=== PATIENT | female | born 1955 | race Caucasian/White ===

== ENCOUNTER → 2023-10-12 | Outpatient (CLI) | payer MEDICARE ==
--- NOTE | 2023-10-12 12:19 | CA ---
Lexiscan Nuclear Stress Test Report Name: Elaine Adorno Exam Date: 10/12/2023 10:30 Exam Location: [place] [facility] Ht (in): 66 Wt (lb): 238 BSA: 2.15 Ordering Phys: Carolyn Conway DO Referring Phys: Alyson Byrd [facility] Technologist: Trent Joe Age: 68 Gender: F : 1955 Procedure CPT: Indications: R06.02 SOB ICD-10 Codes: Patient History: DIFFICULTY IN BREATHING, PALPITATIONS, HTN, HYPERCHOLESTEROLEMIA, PRIOR SMOKER Medications: Meds past 24 hrs: Pretest Chest Pain: STRESS TEST Lexiscan Protocol Exercise Duration (min:sec): 01:[address] Depressions (mm): Angina Score: Crowe Score: Resting HR (bpm): 88 Peak HR (bpm): 101 Resting BP (mmHg): 128 / 69 Peak BP (mmHg): 140 / 64 MPHR: 154 Target HR: 131 % MPHR: 66 METS: 1.0 Total Dose: Peak Dose: Atropine: Double Product: 67648 BP Response: Stress Termination: INFUSION COMPLETE Stress Symptoms: NO SYMPTOMS Stress Summary: ECG ANALYSIS Resting ECG: Stress ECG: CONCLUSIONS At baseline EKG showed normal sinus rhythm, left axis deviation, poor R-wave progression, Q-wave in lead 3 and aVF, no significant ST or T wave abnormalities. Patient recieved IV infusion of Lexiscan 0.4mg and at peak infusion EKG showed no significant change from baseline. Conclusions: 1. Normal EKG response to Lexiscan infusion 2. Nuclear imaging to be reported separately. Dr. Tony Villarreal DO (Electronically Signed) Final Date: 12 October 2023 12:18
--- NOTE | 2023-10-12 12:22 | NM ---
EXAMINATION TYPE: NM stress lexiscan cardiolite DATE OF EXAM: 10/12/2023 COMPARISON: NONE CLINICAL INDICATION: Female, 68 years old with history of R06.02 SOB; TECHNIQUE: After the intravenous administration of 10.6 mCi Tc 99m Sestamibi - Cardiolite resting SP ECT images acquired 45 minutes post injection. The patient received 0.4mg Lexiscan, 25.0 mCi Tc 99m Sestamibi - Stress images obtained [address] injection FINDINGS: Review of stress and rest SPECT images demonstrates no distinct perfusion abnormality. However, polar map suggests some reversibility along the lateral basal wall. Gated analysis shows normal wall motio n with an estimated left ventricular ejection fraction of 68 %. TID is calculated at 1.07, upper castor its of normal. IMPRESSION: 1. Polar map suggests some reversibility along the lateral basal wall. This is favored to represent a ttenuation artifact. Not clearly appreciated on SPECT images. Further clinical correlation recommende d. 2. Estimated LVEF of 68%.
== END | disposition home or self-care (01) ==
LOC: RADNMMAIN 07:56
PROVIDERS: ATTEND Family Medicine
DX: R06.02 Shortness of breath (principal); I10 Essential (primary) hypertension; E78.00 Pure hypercholesterolemia, unspecified; Z87.891 Personal history of nicotine dependence
CPT/HCPCS: 93017; 78452; A9500

== ENCOUNTER → 2023-10-30 | Day surgery (SDC) | payer MEDICARE ==
[2023-10-28 16:19] VITALS: BMI 38.4
[~2023-10-30] MED LIST: ALPRAZolam 0.25 MG TAB PO PRN; HEPARIN SODIUM 1,000 UN/ML (10ML VL) ONE; LIDOCAINE 1% INJ 10MG/ML (20 ML MDV) ONE; NITROGLYCERIN SL TABS 0.4 MG TAB SUBLINGUAL PRN; RX INFO: IV CONTRAST WAS GIVEN 1 EACH MISC MISCELLANE PRN; VERAPAMIL 2.5 MG/ML 2 ML AMP ONE; fentaNYL (PF) 50 MCG/ML 2 ML AMP ONE
[2023-10-30] MEDS: SODIUM CHLORIDE 0.9% 1,000 ML in EMPTY BAG 1 BAG IV SCH (09:20)
[2023-10-30] MEDS: ALPRAZolam 0.5 MG TAB PO PRN (09:20)
[2023-10-30] MEDS: IV FLUID CONTINUATION 1,000 ML IV ONE (09:25)
[2023-10-30 09:35] LABS: Glucose,Whole Blood 235 mg/dL (70-110)
[2023-10-30] MEDS: INSULIN ASPART (NovoLOG) 100 UNIT/ML VIAL SQ ONE (09:40)
[2023-10-30 09:43] LABS: Basophils % (A) 0 %; Eosinophils # (A) 0.4 k/uL (0-0.7); Eosinophils % (A) 5 %; HCT 42.9 % (34.0-46.0); HGB 14.3 gm/dL (11.4-16.0); Hypochromasia Slight; Lymphocytes # (A) 1.7 k/uL (1.0-4.8); Lymphocytes % (A) 19 %; MCH 28.8 pg (25.0-35.0); MCHC 33.2 g/dL (31.0-37.0); MCV 86.6 fL (80.0-100.0); Mean Platelet Volume 8.1; Monocytes # (A) 0.5 k/uL (0-1.0); Monocytes % (A) 5 %; Neutrophils # (A) 6.1 k/uL (1.3-7.7); Neutrophils % (A) 69 %; Platelet Count 285 k/uL (150-450); RBC 4.95 m/uL (3.80-5.40); RDW 15.1 % (11.5-15.5); WBC 8.8 k/uL (3.8-10.6)
[2023-10-30 09:45] VITALS: TEMP 97.5
[2023-10-30] MEDS: ASPIRIN 325 MG TAB PO STA (09:47)
[2023-10-30 09:56] LABS: African American GFR (CKD) >90 (>60 ml/min/1.73 sqM); Anion Gap 9 mmol/L; Blood Urea Nitrogen 19 mg/dL (7-17); Calcium 9.1 mg/dL (8.4-10.2); Carbon Dioxide 23 mmol/L (22-30); Chloride 104 mmol/L (98-107); Glucose 230 mg/dL (74-99); Non-African American GFR(CKD) >90 (>60 ml/min/1.73 sqM); Potassium 4.2 mmol/L (3.5-5.1); Sodium 136 mmol/L (137-145)
[2023-10-30] MEDS: MIDAZOLAM 2 MG/2 ML VIAL IVP ONE (10:15)
[2023-10-30] MEDS: fentaNYL (PF) 50 MCG/1 ML VIAL IVP ONE (10:15)
[2023-10-30] MEDS: LIDOCAINE 1% INJ 10MG/ML (20 ML MDV) SQ ONE (10:16)
[2023-10-30] MEDS: VERAPAMIL SYRINGE (5 MG/10 ML) INTRAARTER ONE (10:20)
[2023-10-30] MEDS: HEPARIN SODIUM 1,000 UN/ML (10ML VL) IV ONE (10:23)
[2023-10-30] MEDS: IOPAMIDOL-370 200ML BTL INJ ONE (10:30)
[2023-10-30] MEDS: HEPARIN SODIUM,PORCINE 10,000 UNIT in SODIUM CHLORIDE 0.9% 1,000 ML IRRIGATION PRN (10:31)
[2023-10-30] MEDS: HEPARIN SODIUM,PORCINE (1 ML) 2,500 UNIT in SODIUM CHLORIDE 0.9% 250 ML IRRIGATION PRN (10:31)
--- NOTE | 2023-10-30 11:06 | CC ---
CARDIAC CATHETERIZATION REPORT INDICATION: Abnormal stress test. PROCEDURE NOTE: After obtaining informed consent, left heart catheterization and coronary angiogram were performed via the right radial artery using standard Jason catheters. The patient tolerated the procedure well without any obvious immediate complications, received moderate conscious sedation. Total sedation time was 16 minutes. Right radial artery access was obtained using Seldinger technique. A 6-[place] sheath was placed. Catheters and wires were floated into the ascending aorta under fluoroscopic guidance. The patient received verapamil and heparin per protocol and a TR band will be used for hemostasis. FINDINGS: 1. Hemodynamics: Left ventricular end-diastolic pressure is 12 mm, there is no significant gradient across the aortic valve. 2. Left Ventriculogram: Left ventriculogram is not performed. 3. Angiographic Data: a.Left Main Coronary Artery: Left main coronary artery is a normal-sized vessel and is free of stenosis. Divides into left anterior descending coronary artery and circumflex coronary artery. LAD and its branches, circumflex coronary artery and its branches are free of significant stenosis. Right coronary artery is a large dominant vessel and is free of significant disease. CONCLUSION: 1. Normal coronary arteries. 2. False-positive stress test. PLAN: Patient's management is going to be in the form of risk factor modification and optimal medical therapy. Symptoms are noncardiac in origin and stress test is a false-positive stress test. MMODL / IJN: [id number] /
[2023-10-30 15:30] VITALS: BP 119/59; PULSE 72; RESP 14
== END ==
LOC: CATHCVL 08:48
PROVIDERS: ATTEND Internal Medicine Cardiovascular Disease
DX: R06.02 Shortness of breath (principal)
CPT/HCPCS: 93454; 80048; 85025; C1769; C1894; J2250; J1644 ×3; J2001; J3010; Q9967